=== PATIENT | female | born 1945 | race Two or more races ===

== ENCOUNTER 2019-08-31 17:00 | Inpatient (IN) | payer OTHER ==
[2019-08-31 17:28] VITALS: BMI 23.4
--- NOTE | 2019-08-31 17:39 | PDOC ---
Attending Attestation - Resident Resident Name: KiranBeau - ED Attending Attestation I have performed the following: I have examined & evaluated the patient, The case was reviewed & discussed with the resident, I agree w/resident's findings & plan, Exceptions are as noted - HPI HPI: 08/31/19 17:37 74y F hx of htn, hl, CAD sp PCI presents with complaint of 1 month of intermittent, Nonradiating, epigastric discomfort. Had seen GI, and plan was to try a soft diet and reassess. Patient states the pain is intermittent seems to be worse after she eats thus she is not been eating or drinking very much states that the only intake that does not cause her symptoms are Gatorade and water. The patient states she has been having a very bland diet including oatmeal, toast but that still causes her epigastric discomfort. The patient endorses some nausea, she denies any vomiting, hematemesis, diarrhea, blood per rectum, Dysuria, hematuria. Patient states she did have similar symptoms a long time ago which usually improves when she changes to a bland diet. She notes the pain has been more persistent in the past week. She has been unable to get a hold of her primary care doctor as they have been on vacation so she came to the ER for evaluation. There is no exertional nature to her symptoms there is no associated shortness of breath, diaphoresis, Back pain, chest pain. Patient also notes that the left several days she has been feeling very lightheaded and when she is walking around. Patient has a history of endoscopy approximately 2 years ago And a colonoscopy approximately 5 years ago Patient is status post cholecystectomy GENERAL: The patient is awake, alert, and fully oriented, Nontoxic - in no acute distress. HEAD: Normocephalic, atraumatic. EYES: extraocular movements intact, sclera anicteric, conjunctiva clear. ENT: Normal voice, dry mucous membranes. NECK: Normal range of motion, supple LUNGS: Breath sounds equal, clear to auscultation bilaterally. No wheezes, no rhonchi, no rales. HEART: Regular rate and rhythm, normal S1 and S2 without murmur, rub or gallop. ABDOMEN: Soft, nontender, No guarding, no rebound. No CVA tenderness EXTREMITIES: Normal range of motion, no edema. NEUROLOGICAL: No facial assymetry, Normal speech, PSYCH: Normal mood, normal affect. SKIN: Warm, Dry, normal turgor, Differential for the patient's symptoms includes possible gastritis, Pancreatitis, consider possible gastric CA Will obtain CBC, CMP, lipase, will treat with Pepcid, Maalox Will obtain a CT of the abdomen for further evaluation Patient does have dry mucous membranes I suspect this is the cause of her lightheadedness we will give the patient fluid hydration will obtain screening EKG to screen for arrhythmia - Physicial Exam PE: 09/04/19 15:32 see above - Medical Decision Making case signed ou to evening eam to fu with results and reasses the pt Heart Score/ECG Review - ECG Impressions Comment:: 08/31/19 18:24 Twelve-lead EKG was performed and reviewed by me. There is normal sinus rhythm with a normal rate. Rate of 63 The axis is normal. The intervals are normal. There is normal R wave progression There are no ST or T wave abnormalities. Impression: Normal twelve-lead EKG
[2019-08-31] MEDS ORDERED: MAG HYDROX/AL HYDROX/SIMETH 30 ML UNIT-DOSE CUP PO ONE (17:46)
[2019-08-31] MEDS ORDERED: FAMOTIDINE 20 MG/50 ML IVPB 20 MG/50 ML MG IVPB ONE ×2 (17:46→17:56)
[2019-08-31] MEDS ORDERED: ACETAMINOPHEN 1000 MG/100 ML VIAL (NON FORMULARY) IVPB ONE (17:46)
[2019-08-31] MEDS ORDERED: SODIUM CHLORIDE 0.9% 500 ML INFUS.BAG IV ONE ×2 (17:46→21:02)
[2019-08-31] MEDS ORDERED: ACETAMINOPHEN INJECTION 100 ML IVPB ONE (17:55)
[2019-08-31] MEDS ORDERED: MAG HYDROX/AL HYDROX/SIMETH 30 ML UNIT-DOSE CUP ONE (17:56)
--- NOTE | 2019-08-31 18:13 | PDOC ---
History of Present Illness - General Chief Complaint: Pain Stated Complaint: ABD PAIN Time Seen by Provider: 08/31/19 17:15 History Source: Patient Exam Limitations: No Limitations - History of Present Illness Initial Comments: 74F PMH HLD, HTN, CAD s/p stent presenting with one month of colicky nonradiating epigastric pain. was seen by GI in [facility], agreed on trying soft diet for two weeks and reassess. two weeks past, symptoms not improved, pt called GI who is out of office. Presenting to ED due to persistent sx and recent onset lightheaded for a few days. Endorses decreased PO intake, early satiety. Denies vomiting, diarrhea, bloody or dark stools. Denies dysuria. Past History - Past Medical History Allergies/Adverse Reactions: Allergies Allergy/AdvReac Type Severity Reaction Status Date / Time metronidazole [From Flagyl] Allergy Verified 08/31/19 17:09 naproxen [From Naprosyn] Allergy Verified 08/31/19 17:09 Home Medications: Ambulatory Orders Aspirin [Aspirin EC] 81 mg PO DAILY 08/31/19 Losartan Potassium 50 mg PO DAILY 08/31/19 Rosuvastatin Calcium [Crestor] 5 mg PO DAILY 08/31/19 Pantoprazole Sodium [Protonix -] 40 mg PO DAILY #30 tablet.ec 09/02/19 Cardiac Disorders: Yes (cad) COPD: No GI Disorders: Yes (gastritis) HTN: Yes Hypercholesterolemia: Yes - Surgical History Cardiac Surgery: Yes (stent) Cholecystectomy: Yes - Psycho Social/Smoking Cessation Hx Smoking History: Never smoked Have you smoked in the past 12 months: No Information on smoking cessation initiated: No Hx Alcohol Use: No Review of Systems - Review of Systems Able to Perform ROS?: Yes Comments:: CONSTITUTIONAL: Denies F / C HEENT: endorses lightheadedness. RESP: Denies SOB CARD: Denies chest pain GI: endorses epigastric pain, decreased PO intake / appetite, early satiety. Denies vomiting, bloody stool, inability to tolerate PO : Denies dysuria, hematuria SKIN: Denies rashes NEURO: Denies numbness, tingling, weakness MSK: Denies back pain Is the patient limited Sinhala proficient: No *Physical Exam - Vital Signs Last Vital Signs Temp Pulse Resp BP Pulse Ox 98.1 F 76 18 143/90 96 08/31/19 17:00 08/31/19 17:00 08/31/19 17:00 08/31/19 17:00 08/31/19 17:00 - Physical Exam GEN: Well appearing, NAD, comfortable. AAOx3. HEENT: NC/AT, EOMI, PERRL. No facial asymmetry. Moist mucous membranes. Normal voice. Supple neck w/ FROM. CV: S1/S2, RRR, no m/r/g LUNG: CTAB, no wheezes, crackles, rales, rhonchi. GI: +TTP of the epigastrium o/w Soft, nd, +BS, no guarding, no rebound. No masses. MSK: No obvious deformities of all extremities. SKIN: Warm, dry, no rashes appreciated. PSYCH: Normal mood and affect. NEURO: Moving all extremities well. ED Treatment Course - LABORATORY CBC & Chemistry Diagram: 09/01/19 06:50 09/01/19 06:50 - RADIOLOGY Radiology Studies Ordered: Category Date Time Status ABDOMEN & PELVIS CT WITH CONTR [CT] Stat CT Scan 08/31/19 17:48 Ordered Medical Decision Making - Medical Decision Making 08/31/19 17:51 74F c/o 1 month of colicky nonradiating epigastric pain w/ a few days of lightheadedness. poor po intake, early satiety. +TTP epigastrium. DDx - PUD, gastritis, pancreatitis, malignancy; biliary tree process less likely. r/o ACS - CBC, CMP, Cardiac, lipase - EKG - GI cocktail - CT signed out to PM team Discharge - Discharge Information Problems reviewed: Yes Clinical Impression/Diagnosis: Abdominal pain Qualifiers: Abdominal location: epigastric Qualified Code(s): R10.13 - Epigastric pain - Follow up/Referral - Patient Discharge Instructions - Post Discharge Activity
[2019-08-31 18:16] LABS: BASO % 0.3 % (0-2.0); EOS % 0.4 % (0-4.5); HEMATOCRIT 35.1 % (32.4-45.2); HEMOGLOBIN 11.6 GM/dl (10.7-15.3); LYMPH % 40.3 % (8-40); MCH 29.9 pg (25.7-33.7); MCHC 33.2 g/dl (32.0-36.0); MEAN CELL VOLUME 90.2 fl (80-96); MEAN PLT VOLUME 8.7 fl (7.5-11.1); MONO % 5.8 % (3.8-10.2); NEUT % 53.2 % (42.8-82.8); PLATELET COUNT 172 K/MM3 (134-434); RBC 3.89 M/mm3 (3.60-5.2); RDW 12.8 % (11.6-15.6); WHITE BLOOD COUNT 5.1 K/mm3 (4.0-10.8)
--- NOTE | 2019-08-31 18:24 | HP ---
CHIEF COMPLAINT: Abdominal pain PCP: Dr. Ludivina Knight, [facility] Cardiology: Dr. Beau Choudhury [phone] HISTORY OF PRESENT ILLNESS: 74 year-old female with a PMH significant HTN, HLD, CAD s/p CHUCK x 1 (OM2)(2015), diastolic dysfunction, GERD, bleeding gastric ulcers (05/2018). Has had one month of intermittent epigastric discomfort, unimproved with bland diet. Over the past 5 days, the epigastric pain has been worse and she has been experiencing lightheadedness, decreased PO intake, some nausea, and early satiety. Denies fever, sweats, chills. Denies vomiting, diarrhea, constipation, blood in urine or stool, UTI symptoms. ER course was notable for: (1) Troponin neg x 1 (2) CTAP: mildly dilated CBD and intrahepatic biliary tract; mild air-filled distension of colon, ileus v. 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[employer]; lives with Smoking: no Alcohol: no Drugs: no Family history: mother 78 CVA; father 93 CVA; 7 siblings no further info; 3 children a&w Allergies metronidazole [From Flagyl] Allergy (Verified 08/31/19 17:09) naproxen [From Naprosyn] Allergy (Verified 08/31/19 17:09) HOME MEDICATIONS: Home Medications Medication Instructions Recorded Aspirin [Aspirin EC] 81 mg PO DAILY 08/31/19 Calcium Carbonate/Vitamin D3 1 each PO DAILY 08/31/19 [Calcium 600+D Softgel] Cholecalciferol (Vitamin D3) 1,000 unit PO DAILY 08/31/19 [Vitamin D3] Cranberry 650 mg PO DAILY 08/31/19 Cyanocobalamin [Vitamin B12 -] 500 mcg PO DAILY 08/31/19 Famotidine [Pepcid] 20 mg PO DAILY 08/31/19 Glucos Sul 2Kcl/MSM/Chond/C/Mn 1,200 mg PO DAILY 08/31/19 [Glucosamine Chondroitin Cap] L. Acidophilus/Pectin, Yancey 1 each PO DAILY 08/31/19 [Acidophilus Caplet] Losartan Potassium 50 mg PO DAILY 08/31/19 Magnesium 500 mg PO DAILY 08/31/19 Multivitamin [Multiple Vitamins] 1 each PO DAILY 08/31/19 Omeprazole 20 mg PO DAILY 08/31/19 Pyridoxine HCl (B-6) [Vitamin B6] 100 mg PO DAILY 08/31/19 Rosuvastatin Calcium [Crestor] 5 mg PO DAILY 08/31/19 Ubidecarenone [Coq-10] 100 mg PO DAILY 08/31/19 REVIEW OF SYSTEMS CONSTITUTIONAL: Absent: fever, chills, diaphoresis, generalized weakness, malaise, loss of appetite, weight change HEENT: Absent: rhinorrhea, nasal congestion, throat pain, throat swelling, difficulty swallowing, mouth swelling, ear pain, eye pain, visual changes CARDIOVASCULAR: Absent: chest pain, syncope, palpitations, irregular heart rate, lightheadedness , peripheral edema RESPIRATORY: Absent: cough, shortness of breath, dyspnea with exertion, orthopnea, wheezing, stridor, hemoptysis GASTROINTESTINAL: +epigastric pain, nausea, early satiety Absent: abdominal distension, vomiting, diarrhea, constipation, melena, hematochezia GENITOURINARY: Absent: dysuria, frequency, urgency, hesitancy, hematuria, flank pain, genital pain MUSCULOSKELETAL: Absent: myalgia, arthralgia, joint swelling, back pain, neck pain SKIN: Absent: rash, itching, pallor HEMATOLOGIC/IMMUNOLOGIC: Absent: easy bleeding, easy bruising, lymphadenopathy, frequent infections ENDOCRINE: Absent: unexplained weight gain, unexplained weight loss, heat intolerance, cold intolerance NEUROLOGIC: Absent: headache, focal weakness or paresthesias, dizziness, unsteady gait, seizure, mental status changes, bladder or bowel incontinence PSYCHIATRIC: Absent: anxiety, depression, suicidal or homicidal ideation, hallucinations. PHYSICAL EXAMINATION Vital Signs - 24 hr 08/31/19 17:00 Temperature 98.1 F Pulse Rate 76 Respiratory 18 Rate Blood Pressure 143/90 O2 Sat by Pulse 96 Oximetry (%) GENERAL: Awake, alert, and fully oriented, in no acute distress. Weak-appearing. HEAD: Normal with no signs of trauma. EYES: Pupils equal, round and reactive to light, extraocular movements intact, sclera anicteric, conjunctiva clear. No lid lag. EARS, NOSE, THROAT: Ears normal, nares patent, oropharynx clear without exudates. Dry mucous membranes. LUNGS: Breath sounds equal, clear to auscultation bilaterally. No wheezes, and no crackles. No accessory muscle use. HEART: Regular rate and rhythm, normal S1 and S2 ABDOMEN: Soft, nontender, not distended MUSCULOSKELETAL: Normal range of motion at all joints. No bony deformities or tenderness. No CVA tenderness. UPPER EXTREMITIES: 2+ pulses, warm, well-perfused. No cyanosis. No clubbing. No peripheral edema. LOWER EXTREMITIES: 2+ pulses, warm, well-perfused. No calf tenderness. No peripheral edema. NEUROLOGICAL: Cranial nerves II-XII intact. Normal speech. Normal gait. PSYCHIATRIC: Cooperative. Good eye contact. Appropriate mood and affect. Laboratory Results - last 24 hr 08/31/19 08/31/19 17:55 17:55 WBC 5.1 RBC 3.89 Hgb 11.6 Hct 35.1 MCV 90.2 MCH 29.9 MCHC 33.2 RDW 12.8 Plt Count 172 MPV 8.7 Absolute Neuts (auto) 2.7 Neutrophils % 53.2 Lymphocytes % 40.3 H Monocytes % 5.8 Eosinophils % 0.4 Basophils % 0.3 Urine Color Yellow Urine Appearance Clear Urine pH 5.5 Urine Protein Negative Urine Glucose (UA) Negative Urine Ketones Negative Urine Blood Trace-intact Urine Nitrite Negative Urine Bilirubin Negative Urine Urobilinogen 0.2 Ur Leukocyte Esterase Negative ASSESSMENT/PLAN 74 year-old female with a PMH significant HTN, HLD, CAD s/p CHUCK x 1 (OM2)(2015), diastolic dysfunction, GERD, bleeding gastric ulcers (05/2018). Admitted for epigastric pain, dilated CBD, possible ileus. Atypical chest pain Coronary artery disease s/p stent --troponins negative x 1, two pending --ECG no for acute ischemia --continue statin and low-dose aspirin --telemetry monitoring --echo --cardiology consult Lightheadedness --CT head unremarkable Diastolic dysfunction --appears euvolemic, not on diuretics Hypertension --BP stable, continue losartan Abdominal pain Gastritis --CTAP: mildly dilated CBD and intrahepatic biliary tract; mild air-filled distension of colon, ileus v. aerophagia --keep NPO, IV fluids --LFTs are wnl, no fever, no leukocytosis; observe off antibiotics --GI consult --MRCP ordered DVT prophylaxis: subq heparin Visit type - Emergency Visit Emergency Visit: Yes ED Registration Date: 08/31/19 Care time: The patient presented to the Emergency Department on the above date and was hospitalized for further evaluation of their emergent condition. - New Patient This patient is new to me today: Yes Date on this admission: 09/05/19 - Critical Care Critical Care patient: No
[2019-08-31 18:26] LABS: ALBUMIN 3.7 g/dl (3.4-5.0); BILIRUBIN,TOTAL 0.7 mg/dl (0.2-1); CALCIUM 9.3 mg/dl (8.5-10); CREATININE 0.8 mg/dl (0.55-1.3); POTASSIUM 3.8 mmol/L (3.5-5.1); TOT PROT 6.8 g/dl (6.4-8.2)
[2019-08-31 18:44] LABS: EPITHELIAL CELLS RARE /hpf
[2019-08-31 18:57] LABS: CHOLESTEROL 129 mg/dl (50-200); HDL CHOLESTEROL 57 mg/dl (40-60); LDL CHOLESTEROL (ONLY DFH) 64 mg/dl (5-100); TRIGLYCERIDES 40 mg/dl (0-150)
[2019-08-31] MEDS: HEPARIN NA (PORCINE) 5,000 UNITS/ML 1ML VIAL SQ SCH (22:13)
[2019-09-01] MEDS: HEPARIN NA (PORCINE) 5,000 UNITS/ML 1ML VIAL SQ SCH ×3 (06:48→21:32)
[2019-09-01] MEDS ORDERED: ONDANSETRON 4 MG/2 ML VIAL IVPUSH PRN (07:28)
[2019-09-01] MEDS ORDERED: SODIUM CHLORIDE 1,000 ML IV SCH (07:30)
[2019-09-01 07:48] LABS: BASO % 0.3 % (0-2.0); HEMATOCRIT 35.6 % (32.4-45.2); HEMOGLOBIN 11.7 GM/dl (10.7-15.3); LYMPH % 49.5 % (8-40); MCH 29.8 pg (25.7-33.7); MCHC 32.9 g/dl (32.0-36.0); MEAN CELL VOLUME 90.5 fl (80-96); MEAN PLT VOLUME 9.1 fl (7.5-11.1); MONO % 6.7 % (3.8-10.2); NEUT % 42.5 % (42.8-82.8); PLATELET COUNT 165 K/MM3 (134-434); RBC 3.94 M/mm3 (3.60-5.2); RDW 12.1 % (11.6-15.6); WHITE BLOOD COUNT 5.7 K/mm3 (4.0-10.8)
[2019-09-01 07:53] LABS: ALBUMIN 3.6 g/dl (3.4-5.0); BILIRUBIN,TOTAL 0.8 mg/dl (0.2-1); CALCIUM 9.1 mg/dl (8.5-10); CREATININE 0.9 mg/dl (0.55-1.3); PHOSPHOROUS 2.7 mg/dl (2.5-4.9); POTASSIUM 3.8 mmol/L (3.5-5.1); TOT PROT 6.1 g/dl (6.4-8.2)
[2019-09-01 07:54] LABS: BILIRUBIN,DIRECT 0.1 mg/dL (0.0-0.2)
[2019-09-01] MEDS ORDERED: MAGNESIUM OXIDE 400 MG TABLET (FP) PO ONE (09:30)
[2019-09-01] MEDS ORDERED: POTASSIUM CHLORIDE TABS 20 MEQ TABLET.ER (FP) PO ONE (09:30)
--- NOTE | 2019-09-01 12:50 | EKG ---
Test Reason : Blood Pressure : / mmHG Vent. Rate : 061 BPM Atrial Rate : 061 BPM P-R Int : 200 ms QRS Dur : 064 ms QT Int : 436 ms P-R-T Axes : 057 045 059 degrees QTc Int : 438 ms NORMAL SINUS RHYTHM LOW VOLTAGE QRS CANNOT RULE OUT ANTERIOR INFARCT , AGE UNDETERMINED ABNORMAL ECG WHEN COMPARED WITH ECG OF 31-AUG-2019 18:03, NO SIGNIFICANT CHANGE WAS FOUND Confirmed by LAKESHA WALDROP MD ([id number]) on 09/01/2019 12:50:40 PM Referred By: Confirmed By:LAKESHA WALDROP MD
--- NOTE | 2019-09-01 12:51 | EKG ---
Test Reason : Blood Pressure : / mmHG Vent. Rate : 063 BPM Atrial Rate : 063 BPM P-R Int : 196 ms QRS Dur : 066 ms QT Int : 420 ms P-R-T Axes : 066 053 058 degrees QTc Int : 429 ms NORMAL SINUS RHYTHM LOW VOLTAGE QRS CANNOT RULE OUT INFERIOR INFARCT , AGE UNDETERMINED WHEN COMPARED WITH ECG OF 07-APR-2000 07:51, NO SIGNIFICANT CHANGE WAS FOUND Confirmed by LAKESHA WALDROP MD ([id number]) on 09/01/2019 12:51:38 PM Referred By: DR PAZ Confirmed By:LAKESHA WALDROP MD
[2019-09-01] MEDS: PANTOPRAZOLE 40 MG TABLET PO SCH (15:00)
--- NOTE | 2019-09-01 15:57 | PN ---
Progress Note (short form) - Note Progress Note: Patient seen and chart/labs reviewed with consult dictated Patient with several complaints including dizziness, decreased appetite and epigastric discomfort. The GI c/o have been present in varying intensity x years and she has had upper endoscopy in the past (last approx 2 years ago). Has been on PPI and H2 lucio therapy with some relief. Also takes a baby ASA daily. s/p GB surgery 25+ years ago Has normal CBC, lytes, LFTs. lipase and unremarkable CT abd/pelvis (has 8-9 mm CBD); MRCP pending. TSH level elevated. Exam notable for mild epigastric discomfort; no mass or HSM normal BS Suspect patient has peptic symptoms possibly exacerbated by chronic aspirin use. Cause of dizziness likely unrelated to GI symptoms. Rec: stop ASA PPI daily check Free T4 level, B12 level and CRP begin PO as tolerated await results of MRCP and ?sonogram If above tests normal and symptoms persist, can arrange for EGD on Wednesday (if improves, can discharge with outpatient followup care - patient has GI doctor who she sees in [place])
--- NOTE | 2019-09-01 16:10 | ECHO ---
Name: JODIE MELÉNDEZ Exam:Adult Echocardiogram Study Date: 09/01/2019 03:27 PM Age: 74 yrs Reason For Study: Bradycardia Height: 60 in Weight: 121 lb BSA: 1.5 m2 MMode/2D Measurements & Calculations IVSd: 0.81 cm Ao root diam: 2.7 cm LVIDd: 3.5 cm LA dimension: 2.6 cm LVIDs: 2.2 cm LVPWd: 0.87 cm LVPWs: 1.4 cm EDV(Teich): 49.9 ml ESV(Teich): 16.8 ml LVOT diam: 1.9 cm Doppler Measurements & Calculations MV E max med: 96.3 cm/sec MV A max med: 111.0 cm/sec MV dec slope: 421.3 cm/sec2 MV E/A: 0.87 Ao V2 max: 156.6 cm/sec LV V1 max P.8 mmHg Ao max P.8 mmHg LV V1 max: 97.2 cm/sec DIXON(V,D): 1.8 cm2 MR max emd: 381.6 cm/sec PA V2 max: 96.8 cm/sec MR max P.2 mmHg PA max P.8 mmHg Left Ventricle The left ventricular size, thickness and function are normal. The transmitral spectral Doppler flow p attern is suggestive of impaired LV relaxation. Right Ventricle The right ventricle is normal in size and function. Atria Normal left and right atrial size and function. Mitral Valve The mitral valve is normal in structure and function. There is no mitral valve stenosis. There is mil d mitral regurgitation. Tricuspid Valve The tricuspid valve is normal in structure and function. There is mild tricuspid regurgitation. Aortic Valve The aortic valve opens well. No hemodynamically significant valvular aortic stenosis. No aortic regur gitation is present. Pulmonic Valve The pulmonic valve is not well seen, but is grossly normal. There is no pulmonic valvular stenosis. Great Vessels The aortic root is normal size. Pericardium/Pleura There is no pericardial effusion. Interpretation Summary The left ventricular size, thickness and function are normal The transmitral spectral Doppler flow pattern is suggestive of impaired LV relaxation. The right ventricle is normal in size and function. There is mild mitral regurgitation. There is mild tricuspid regurgitation. There is no pericardial effusion. MD Villavicencio *Mali 09/01/2019 04:10 PM
--- NOTE | 2019-09-01 16:32 | CONS ---
DATE OF CONSULTATION: 09/01/2019 REASON FOR CONSULTATION: Asked to evaluate this 74-year-old female for epigastric pain. HISTORY OF PRESENT ILLNESS: The patient is a 74-year-old, female with a history of hypertension, hyperlipidemia, coronary artery disease, and a history of cardiac stent. 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 She apparently has been told of having gastritis over a many-year period with intermittent complaints of epigastric pain, occasional belching and/or bloating. She is also 25 years status post cholecystectomy. She had an upper endoscopy approximately 2 years ago; at which time, she was noted to have gastritis with biopsies taken. She states that after the endoscopy, she had bleeding, requiring a repeat endoscopy the following day with cautery of the bleeding sites. She specifically denies having had actual ulcers. She does take a baby aspirin daily. She also usually takes omeprazole at one point during the day and an H2 lucio later on, usually with some relief of her occasional epigastric discomfort. The patient states that over the past month, she has had some more abdominal discomfort in the upper abdomen which has affected her eating with a somewhat diminished appetite. She was seen by her new corporate recycling manager in [facility] and given some dietary advice with plan to re-evaluate and possibly repeat an endoscope if her symptoms did not improve. The patient states that she called her doctor, a day prior to her admission to [place], and found that she was on vacation. The patient presented to the emergency room, complaining of some discomfort, mainly some dizziness. The patient's hospital course is notable for normal electrolytes with a BUN of 14 and creatinine of 0.9, normal liver chemistries, and a normal serum lipase level. Her TSH level was elevated at 6.38. She was noted to have a hemoglobin of 11.7, hematocrit of 35.6 with normal red cell indices and a white count of 5.7. The patient had a CAT scan of the abdomen and pelvis, which shows her to be status post cholecystectomy with a minimally dilated common bile duct measuring 0.9 cm and slight intrahepatic biliary track dilatation. There is no obvious mass and the colon was notable only for some air. The patient's hospital course has been notable for her evaluation, which included a cardiac consultation pending for her dizziness. On one occasion, she was noted to have a moderate bradycardia. The patient also had an MRCP, earlier this afternoon, with the results pending, and is apparently scheduled for a sonogram of the abdomen. PHYSICAL EXAMINATION: General: On exam, she is a well-developed, well-nourished female, appearing in no distress. Eyes: She has pink conjunctiva. Abdomen: Soft. Normoactive bowel sounds and minimal to mild discomfort in the epigastrium to deep palpation without any obvious mass. There is no palpable hepatosplenomegaly. Patient has some upper GI symptoms, suggestive of peptic disease, possibly related to her chronic use of aspirin. I have suggested discontinuation of aspirin and use of a proton-pump inhibitor daily. She is not restricted, in terms of her diet, as she can take what she wishes. However, if her symptoms do not improve, an upper endoscopy will be recommended. In addition, a review of the MRCP and sonography would be suggested when available. A free T4 level has been recommended, along with a B12 level, especially in view of her dizziness. Will follow expectantly with recommendations to follow. If she does improve, she can be followed as an outpatient either by myself or her GI doctor in [facility] in followup. IBAN MILIAN M.D. [id number]
[2019-09-01] MEDS: ASPIRIN COATED 81 MG TABLET.EC PO SCH (17:18)
[2019-09-01] MEDS: LOSARTAN POTASSIUM 50 MG TABLET (FP) PO SCH (17:18)
[2019-09-01] MEDS ORDERED: ROSUVASTATIN CA 5 MG TABLET (FP) PO SCH (22:00)
[2019-09-02] MEDS: HEPARIN NA (PORCINE) 5,000 UNITS/ML 1ML VIAL SQ SCH (06:45)
[2019-09-02 07:28] VITALS: BP 124/57; PULSE 66; TEMP 97.9
[2019-09-02] MEDS: PANTOPRAZOLE 40 MG TABLET PO SCH (09:31)
[2019-09-02] MEDS: ASPIRIN COATED 81 MG TABLET.EC PO SCH (09:31)
[2019-09-02] MEDS: LOSARTAN POTASSIUM 50 MG TABLET (FP) PO SCH (09:31)
--- NOTE | 2019-09-02 11:40 | DS ---
Physical Exam: SUBJECTIVE: Patient seen and examined OBJECTIVE: Vital Signs Period Temp Pulse Resp BP Sys/Mccartney Pulse Ox Last 24 Hr 97.7 F-98.0 F 60-73 16-19 112-137/51-72 97-100 PHYSICAL EXAM GENERAL: The patient is awake, alert, and fully oriented, in no acute distress. HEAD: Normal with no signs of trauma. LUNGS: Breath sounds equal, clear to auscultation bilaterally, no wheezes, no crackles, no accessory muscle use. HEART: Regular rate and rhythm, S1, S2 ABDOMEN: Soft, nontender, nondistended EXTREMITIES: 2+ pulses, warm, well-perfused, no edema. NEUROLOGICAL: Cranial nerves II through XII grossly intact. Normal speech, steady gait LABS CBCD WBC 5.7 K/mm3 (4.0-10.8) 09/01/19 06:50 RBC 3.94 M/mm3 (3.60-5.2) 09/01/19 06:50 Hgb 11.7 GM/dl (10.7-15.3) 09/01/19 06:50 Hct 35.6 % (32.4-45.2) 09/01/19 06:50 MCV 90.5 fl (80-96) 09/01/19 06:50 MCHC 32.9 g/dl (32.0-36.0) 09/01/19 06:50 RDW 12.1 % (11.6-15.6) 09/01/19 06:50 Plt Count 165 K/MM3 (134-434) 09/01/19 06:50 MPV 9.1 fl (7.5-11.1) 09/01/19 06:50 CMP Sodium 143 mmol/L (136-145) 09/01/19 06:50 Potassium 3.8 mmol/L (3.5-5.1) 09/01/19 06:50 Chloride 115 mmol/L (98-107) H 09/01/19 06:50 Carbon Dioxide 25 mmol/L (21-32) 09/01/19 06:50 Anion Gap 3 MMOL/L (8-16) L 09/01/19 06:50 BUN 14.0 mg/dl (7-18) 09/01/19 06:50 Creatinine 0.9 mg/dl (0.55-1.3) 09/01/19 06:50 Calcium 9.1 mg/dl (8.5-10) 09/01/19 06:50 Total Bilirubin 0.8 mg/dl (0.2-1) 09/01/19 06:50 AST 25 U/L (15-37) 09/01/19 06:50 ALT 24 U/L (13-61) 09/01/19 06:50 Alkaline Phosphatase 62 U/L (45-117) 09/01/19 06:50 Total Protein 6.1 g/dl (6.4-8.2) L 09/01/19 06:50 Albumin 3.6 g/dl (3.4-5.0) 09/01/19 06:50 HOSPITAL COURSE: Date of Admission:08/31/19 Date of Discharge: 09/02/19 Pre hospital course 74 year-old female with a PMH significant HTN, HLD, CAD s/p CHUCK x 1 (OM2)(2015), diastolic dysfunction, GERD, bleeding gastric ulcers (05/2018). Has had one month of intermittent epigastric discomfort, unimproved with bland diet. Over the past 5 days, the epigastric pain has been worse and she has been experiencing lightheadedness, decreased PO intake, some nausea, and early satiety. Denies fever, sweats, chills. Denies vomiting, diarrhea, constipation, blood in urine or stool, UTI symptoms. ER course (1) Troponin neg x 1 (2) CTAP: mildly dilated CBD and intrahepatic biliary tract; mild air-filled distension of colon, ileus v. aerophagia Subsequent hospital course 74 year-old female with a PMH significant HTN, HLD, CAD s/p CHUCK x 1 (OM2)(2015), diastolic dysfunction, GERD, bleeding gastric ulcers (05/2018). Admitted for epigastric pain, dilated CBD, possible ileus. Atypical chest pain Coronary artery disease s/p stent --troponins negative x 3 --ECGs negative for acute ischemia --continued statin and low-dose aspirin --seen and evaluated by cardiology Lightheadedness --CT head unremarkable Nocturnal bradycardia --HR in high 30s at times during sleep --per cardiology, likely vagally mediated but consider outpatient sleep study for PIPO evaluation Diastolic dysfunction --09/01 Echo: LV normal, impaired LV relaxation; RV normal; mild MR; mild TR --not on diuretics Hypertension --BP stable, continued losartan Abdominal pain Gastritis --MRCP: no evidence of dilitation of intrahepatic biliary radicles; minimal dilitation of the common hepatic and common bile ducts; no evidence of choledocholilithiasis --did not stop ASA due to coronary PCI; continued PPI --kept NPO and diet advanced slowly with symptomatic improvement --recommended patient stop taking the twelve vitamin/supplements she takes as --follow up with outpatient GI Minutes to complete discharge: 35 Discharge Summary Problems reviewed: Yes Reason For Visit: DEHYDRATION - Instructions Diet, Activity, Other Instructions: A prescription has been sent to your pharmacy for pantoprazole. Take this medication as directed. It is recommended you follow up with your primary care provider and/or your washing machine assembler within 1-2 weeks of your discharge. If your gastric symptoms persist, you may want to discuss continued aspirin therapy with your lumber kiln operator and possibly switching to a different anti- platelet therapy. Continue to take your daily aspirin for now. Do not make any changes to your aspirin therapy without discussing with your lumber kiln operator. Referrals: Ludivina Knight MD [Non Staff, Medical] - Disposition: HOME - Home Medications Comprehensive Discharge Medication List: Ambulatory Orders Aspirin [Aspirin EC] 81 mg PO DAILY 08/31/19 Calcium Carbonate/Vitamin D3 [Calcium 600+D Softgel] 1 each PO DAILY 08/31/19 Cholecalciferol (Vitamin D3) [Vitamin D3] 1,000 unit PO DAILY 08/31/19 Cranberry 650 mg PO DAILY 08/31/19 Cyanocobalamin [Vitamin B12 -] 500 mcg PO DAILY 08/31/19 Famotidine [Pepcid] 20 mg PO DAILY 08/31/19 Glucos Sul 2Kcl/MSM/Chond/C/Mn [Glucosamine Chondroitin Cap] 1,200 mg PO DAILY 08/31/19 L. Acidophilus/Pectin, [place] [Acidophilus Caplet] 1 each PO DAILY 08/31/19 Losartan Potassium 50 mg PO DAILY 08/31/19 Magnesium 500 mg PO DAILY 08/31/19 Multivitamin [Multiple Vitamins] 1 each PO DAILY 08/31/19 Omeprazole 20 mg PO DAILY 08/31/19 Pyridoxine HCl (B-6) [Vitamin B6] 100 mg PO DAILY 08/31/19 Rosuvastatin Calcium [Crestor] 5 mg PO DAILY 08/31/19 Ubidecarenone [Coq-10] 100 mg PO DAILY 08/31/19 Prescription Drug Monitoring Program (I-STOP) results: I-STOP not reviewed This patient is new to me today: No Emergency Visit: Yes ED Registration Date: 08/31/19 Care time: The patient presented to the Emergency Department on the above date and was hospitalized for further evaluation of their emergent condition. Critical Care patient: No - Discharge Referral Referred to [facility] Med P.C.: No
--- NOTE | 2019-09-02 12:05 | CON.CARD ---
Consult Consult Specialty:: Cardiology Referred by:: Shaun Garrett Reason for Consultation:: Dizziness - History of Present Illness Chief Complaint: Abdominal pain and dizziness History of Present Illness: 74 F w/ CAD s/p remote PCI admitted with abdominal pain and episode dizziness after getting up from toilet after bowel movement. No CP, palps, SOB. Seen by GI: MRI abdomen negative. Head CT: no acute path Noted to have sinus roberto carlos during sleep hours - History Source History Provided By: Patient Limitations to Obtaining History: No Limitations - Past Medical History FRONT EDGER: No: Alzheimer's, CVA, Dementia, Migraine, Multiple Sclerosis, Peripheral Neuropathy, Parkinson's, Seizure, Syncope, TIA, Vertigo, Other Cardio/Vascular: Yes: CAD, HTN Pulmonary: No: Asthma, Bronchitis, Cancer, COPD, O2 Dependent, Pneumonia, Previously Intubated, Pulmonary Embolus, Pulmonary Fibrosis, Sleep Apnea, Other Gastrointestinal: No: Ascites, Cancer, Constipation, Crohn's Disease, Diverticulitis, Diverticulosis, Esophageal Varices, Gastritis, GERD, GI Bleed, Hemorrhoids, Hiatal Hernia, Inflamatory Bowel Disease, Irritable Bowel Disease, Pancreatitis, Peptic Ulcer Disease, Ulcerative Colitis, Other Hepatobiliary: No: Cirrhosis, Cholelithiasis, Cholecystitis, Choledocholithiasis , Hepatitis A, Hepatitis B, Hepatitis C, Other Renal/: No: Renal Failure, Renal Inusuff, BPH, Cancer, Hematuria, Hemodialysis , Neurogenic Bladder, Renal Calculi, UTI, Other Reproductive: No: Ectopic , Endometriosis, Fibroids, PID, Polycystic Ovary Syndrome, Postmenopausal, Other Infectious Disease: No: AIDS, C-Diff, Herpes Zoster, HIV, MRSA, STD's, Tuberculosis, VREF, Other Psych: No: Addictions, Anxiety, Bipolar, Depression, Panic, Psychosis, Schizophrenia, Other Musculoskeletal: No: Bursitis, Chronic low back pain, Hemiparesis, Hemiplegia, Osteoarthritis, Paraplegia, Other ENT: No: Allergic Rhinitis, Sinusitis, Other Endocrine: No: [place]'s Disease, [place]'s Disease, Diabetes Insipidus, Diabetes Mellitus, Hyperparathyroidism, Hyperthyroidism, Hypothyroidism, Osteopenia, SIADH, Other - Alcohol/Substance Use Hx Alcohol Use: No - Smoking History Smoking history: Never smoked Have you smoked in the past 12 months: No - Social History Usual Living Arrangement: With Spouse History of Recent Travel: No Home Medications - Allergies Allergies/Adverse Reactions: Allergies Allergy/AdvReac Type Severity Reaction Status Date / Time metronidazole [From Flagyl] Allergy Verified 08/31/19 17:09 naproxen [From Naprosyn] Allergy Verified 08/31/19 17:09 - Home Medications Home Medications: Ambulatory Orders Aspirin [Aspirin EC] 81 mg PO DAILY 08/31/19 Losartan Potassium 50 mg PO DAILY 08/31/19 Rosuvastatin Calcium [Crestor] 5 mg PO DAILY 08/31/19 Pantoprazole Sodium [Protonix -] 40 mg PO DAILY #30 tablet.ec 09/02/19 Family Medical History Family History: Unremarkable (non-contrib) Review of Systems Findings/Remarks: See HPI - Review of Systems Constitutional: reports: No Symptoms Eyes: reports: No Symptoms HENT: reports: No Symptoms Neck: reports: No Symptoms Cardiovascular: reports: No Symptoms Respiratory: reports: No Symptoms Gastrointestinal: reports: Abdominal Pain Genitourinary: reports: No Symptoms Breasts: reports: No Symptoms Reported Musculoskeletal: reports: No Symptoms Neurological: reports: Dizziness Endocrine: denies: No Symptoms, Excessive Sweating, Flushing, Increased Hunger, Increased Thirst, Intolerance to Cold, Intolerance to Heat, Unexplained Weight Gain, Unexplained Weight Loss, Other Hematology/Lymphatic: denies: No Symptoms, Easily Bruised, Excessive Bleeding, Swollen Glands, Other Psychiatric: denies: No Symptoms, Altered Sleep Pattern, Anxiety, Depression, Hallucinations, Panic, Paranoia, Suicidal, Other - Risk Factors Known Risk Factors: Yes: Hypertension, Other (Known CAD) Vital Signs: Vital Signs Temperature 97.9 F 09/02/19 06:00 Pulse Rate 66 09/02/19 06:00 Respiratory Rate 19 09/02/19 06:00 Blood Pressure 124/57 L 09/02/19 06:00 O2 Sat by Pulse Oximetry (%) 100 09/02/19 06:00 Constitutional: Yes: No Distress, Calm Eyes: Yes: Conjunctiva Clear, EOM Intact HENT: Yes: Atraumatic, Normocephalic Neck: Yes: Trachea Midline Respiratory: Yes: CTA Bilaterally Gastrointestinal: Yes: Soft (NT, no rebound or guarding) Carotid Bruit: No PMI: Non-Displaced Heart Sounds: Yes: S1, S2 (rrr, soft systolic murmur rsb) Edema: No Peripheral Pulses WNL: Yes Neurological: Yes: Alert, Oriented ...Motor Strength: WNL - Other Data Labs, Other Data: CBC, BMP 09/01/19 06:50 09/01/19 06:50 Laboratory Tests 09/01/19 09/01/19 09/01/19 06:50 06:50 06:50 WBC 5.7 Hgb 11.7 Plt Count 165 Sodium 143 Potassium 3.8 Creatinine 0.9 Troponin I < 0.03 TSH 6.38 H 09/01/19 23:50 WBC Hgb Plt Count Sodium Potassium Creatinine Troponin I < 0.02 TSH Laboratory Tests 09/01/19 06:50 TSH 6.38 H Prior Cardiac Procedures: PTCA with Stent Ejection Fraction %: LVEF > or = 40 % Imaging - Results Cat Scan: Report Reviewed MRI: Report Reviewed EKG: Image Reviewed (NSR no acute ST changes) Assessment/Plan IMP: Dizziness, resolved. Likely vasovagal after bowel movement, +/- due abdominal pain Abdominal pain, now resolved. CAD s/p PCI s/p CHUCK OM2015 HTN Nocturnal bradycardia Murmur REC: 1. Dizziness: -Suspect vasovagal episode after bowel movement and also possibly increased vagal output from abdominal pain -Do not suspect related to bradycardia, as this occurs mostly during sleep and early AM hours. -Now resolved 2. Abdominal pain: possibly mild gastritis as noted by GI, now resolved. -Cannot stop ASA due to hx of coronary PCI -Pt advised to f/u with primary guide changer, consider switch to Plavix if truly has gastritis which is less irritating to gastric mucosa -MRI abdomen benign 3. CAD s/p CHUCK OM1 2015: -cont Statin for LDL goal 70mg/dl -Requires single antiplatelet Rx -Advised to use low dose ASA with food for now and f/u primary cardio as outlined above. 4. HTN: well controlled on Losartan 50 5. Nocturnal bradycardia: -Likely vagally mediated; normal LVEF -Consider outpt sleep study for PIPO eval -Unlikely cause of dizziness, which has now resolved and was likely due to vasovagal episode 6. Murmur: chronic, corresponds to mild MR/TR on echo
== END 2019-09-02 14:00 | disposition home or self-care (01) | DRG 312 ==
LOC: FER 17:00 → FM/S 20:17
PROVIDERS: ADMIT Internal Medicine; ATTEND Nurse Practitioner Acute Care
DX: R55 Syncope and collapse (principal); K29.70 Gastritis, unspecified, without bleeding; R10.13 Epigastric pain; I25.10 Atherosclerotic heart disease of native coronary artery without angina pectoris; I10 Essential (primary) hypertension; R42 Dizziness and giddiness; Z95.5 Presence of coronary angioplasty implant and graft; R10.9 Unspecified abdominal pain; R00.1 Bradycardia, unspecified; R01.1 Cardiac murmur, unspecified; E78.5 Hyperlipidemia, unspecified; K21.9 Gastro-esophageal reflux disease without esophagitis
CPT/HCPCS: 36415; 70450-TC; 71045-TC-FY; 74177-TC; 74181-TC; 80048; 80053; 80061; 80076; 81003; 81015; 82550; 82607; 83690; 83735; 84100; 84439; 84443; 84484; 85025; 86140; 93005; 93306-TC; 99285-25; J0131; J1644; J7030; Q9967